=== PATIENT | female | born 1940 | race African-American/Black ===

== ENCOUNTER 2019-08-19 16:38 | Emergency (ER) | payer MEDICARE ==
--- NOTE | 2019-08-19 17:22 | ER Document Report ---
ED Skin Rash/Insect Bite/Abscs - General Chief Complaint: Skin Sore(s) Stated Complaint: SKIN PROBLEM Time Seen by Provider: 08/19/19 16:54 Primary Care Provider: Wound Care [Provider Group] - Follow up as needed RENEE MOORE MD [Primary Care Provider] - Follow up as needed Mode of Arrival: Ambulatory Information source: Patient, Relative - Daughter Notes: 78-year-old female presented to ED for a sore to the sacral area. Daughter states she was just recently diagnosed with dementia and was released from the doctor's care in [place] to her care. She states that the patient has a large swollen coccyx area. States she does not know how long the sores been there but the patient states that 2 months ago she went in the hospital and the sore started about 10. Daughter states that her mother would not let her look at the wound until last night when she change the dressing. She states she saw it and that it looks so bad that she brought her to the emergency room. There is some eschar area but there is no drainage or erythema. She does have some fresh proud skin. This is a stage III sacral decubitus. No sounds of drainage. I have cleaned the wound and put a wet-to-dry dressing and it with a ABD pad and paper tape. I have instructed the daughter and patient to follow-up with primary doctor tomorrow and follow-up with the wound clinic for treatment for this area. - HPI Patient complains to provider of: Other - Decubitus Onset: Other - According to patient about 2 months Onset/Duration: Gradual Quality of pain: No pain Severity: None Pain Level: Denies Skin Character: Other - Sacral decubitus Identify cause: No Exacerbated by: Sitting Relieved by: Denies Similar symptoms previously: Yes Recently seen / treated by doctor: No - Related Data Allergies/Adverse Reactions: No Known Allergies Allergy (Unverified 08/19/19 17:40) Past Medical History - General Information source: Patient - Social History Smoking Status: Former Smoker Cigarette use (# per day): No Chew tobacco use (# tins/day): No Smoking Education Provided: No Frequency of alcohol use: None Drug Abuse: None Lives with: Family Family History: Reviewed & Not Pertinent Patient has suicidal ideation: No Patient has homicidal ideation: No - Past Medical History Cardiac Medical History: Reports: None Pulmonary Medical History: Reports: None EENT Medical History: Reports: None Neurological Medical History: Reports: None Endocrine Medical History: Reports: None Renal/ Medical History: Reports: None Malignancy Medical History: Reports: None GI Medical History: Reports: None Musculoskeletal Medical History: Reports None Skin Medical History: Reports None Psychiatric Medical History: Reports: Hx Dementia, Hx Depression, Hx Schizophrenia Traumatic Medical History: Reports: None Infectious Medical History: Reports: None Past Surgical History: Reports: Hx Section, Hx Hysterectomy Review of Systems - Review of Systems Constitutional: No symptoms reported EENT: No symptoms reported Cardiovascular: No symptoms reported Respiratory: No symptoms reported Gastrointestinal: No symptoms reported Genitourinary: No symptoms reported Female Genitourinary: No symptoms reported Musculoskeletal: No symptoms reported Skin: Other - Stage III decubitus 4 cm x 3 cm with eschar no drainage noted Hematologic/Lymphatic: No symptoms reported Neurological/Psychological: No symptoms reported -: Yes All other systems reviewed and negative Physical Exam - Vital signs Vitals: Temp 98.6 F 08/19/19 16:39 Interpretation: Normal - General General appearance: Appears well, Alert - HEENT Head: Normocephalic, Atraumatic Eyes: Normal Pupils: PERRL - Respiratory Respiratory status: No respiratory distress Chest status: Nontender Breath sounds: Normal Chest palpation: Normal - Cardiovascular Rhythm: Regular Heart sounds: Normal auscultation Murmur: No - Abdominal Inspection: Normal Distension: No distension Bowel sounds: Normal Tenderness: Nontender Organomegaly: No organomegaly - Back Back: Normal, Nontender - Extremities General upper extremity: Normal inspection, Nontender, Normal color, Normal ROM, Normal temperature General lower extremity: Normal inspection, Nontender, Normal color, Normal ROM, Normal temperature, Normal weight bearing. No: Alyx's sign - Neurological Neuro grossly intact: Yes Cognition: Normal Orientation: AAOx4 [place] Coma Scale Eye Opening: Spontaneous [place] Coma Scale Verbal: Oriented [place] Coma Scale Motor: Obeys Commands [place] Coma Scale Total: 15 Speech: Normal Motor strength normal: LUE, RUE, LLE, RLE Sensory: Normal - Psychological Associated symptoms: Normal affect, Normal mood - Skin Skin Temperature: Warm Skin Moisture: Dry Skin Color: Normal Skin irregularity: Decubitus ulcer - Stage III 4 cm x 3 cm with eschar Location of irregularity: Other - Sacral area Irregularity with: negative: Tenderness Course - Vital Signs Vital signs: Temp Pulse Resp BP Pulse Ox 99.5 F 107 H 18 134/75 H 95 08/19/19 17:39 08/19/19 17:39 08/19/19 17:39 08/19/19 17:39 08/19/19 17:39 Discharge - Discharge Clinical Impression: Sacral decubitus ulcer, stage III Condition: Stable Disposition: HOME, SELF-CARE Additional Instructions: Decubitus Ulcer A decubitus ulcer develops where there's pressure on the skin. It's a common problem in patients who can't move easily. The healing time depends on the size and depth of the ulcer, and on whether further damage can be avoided. If there are signs of infection, an antibiotic is prescribed. The ulcer should be cleaned and bandaged at least daily. The doctor may recommend special treatments such as whirlpool. Further pressure (such as lying on the ulcer area) should be absolutely avoided. Frequent changes of position will avoid further ulcers. To help the ulcer heal, pay close attention to general health. Diabetics should keep the blood sugar as normal as possible. Edema can be reduced with medication. Low blood oxygen can be improved with medication to improve breathing or an oxygen tank at home. Review the treatment of all medical problems with the doctor. Infection can spread from the ulcer. If there's fever, chilling, worsening pain, or increasing swelling in the area, call the doctor or return immediately. Please clean get in the shower daily but then changed wet-to-dry dressings with the saline and gauze that was provided, cover with ABD pad or the dressings that you have at home. Change anytime the dressing is soiled. Given you the name and number for the wound clinic I also want you to follow-up with her primary doctor. FOLLOW-UP CARE: If you have been referred to a physician for follow-up care, call the physicians office for an appointment as you were instructed or within the next two days. If you experience worsening or a significant change in your symptoms, notify the physician immediately or return to the Emergency Department at any time for re-evaluation. Referrals: Wound Care [Provider Group] - Follow up as needed RENEE MOORE MD [Primary Care Provider] - Follow up as needed
[2019-08-19 17:41] VITALS: BP 134/75
== END 2019-08-19 17:41 | disposition home or self-care (01) ==
LOC: ER 16:38
DX: L89.153 Pressure ulcer of sacral region, stage 3 (principal); F03.90 Unspecified dementia, unspecified severity, without behavioral disturbance, psychotic disturbance, mood disturbance, and anxiety; Z87.891 Personal history of nicotine dependence
CPT/HCPCS: 99283

== ENCOUNTER → 2019-10-21 | Outpatient (CLI) | payer MEDICARE, MEDICAID ==
[2019-10-21 15:57] LABS: ALBUMIN 4.2 g/dL (3.5-5.0); ALKALINE PHOSPHATASE 75 U/L (38-126); ANION GAP 9 (5-19); ASPARTATE AMINO TRANSFERASE 26 U/L (14-36); BILIRUBIN,TOTAL 0.2 mg/dL (0.2-1.3); BLOOD UREA NITROGEN 17 mg/dL (7-20); CALCIUM 9.9 mg/dL (8.4-10.2); CARBON DIOXIDE 25 mmol/L (22-30); CHLORIDE 96 mmol/L (98-107); GLUCOSE 96 mg/dL (75-110); POTASSIUM 4.4 mmol/L (3.6-5.0); TOTAL PROTEIN 7.1 g/dL (6.3-8.2)
== END ==
LOC: OD 14:55
PROVIDERS: ATTEND Family Medicine
DX: N17.9 Acute kidney failure, unspecified (principal); E87.1 Hypo-osmolality and hyponatremia; K76.89 Other specified diseases of liver; E03.9 Hypothyroidism, unspecified
CPT/HCPCS: 36415; 80053; 84443

== ENCOUNTER → 2019-12-16 | Outpatient (CLI) | payer MEDICARE, MEDICAID ==
[2019-12-16 13:54] LABS: ANION GAP 10 (5-19); BLOOD UREA NITROGEN 19 mg/dL (7-20); CALCIUM 10.4 mg/dL (8.4-10.2); CARBON DIOXIDE 26 mmol/L (22-30); CHLORIDE 103 mmol/L (98-107); GLUCOSE 94 mg/dL (75-110); POTASSIUM 4.6 mmol/L (3.6-5.0)
== END ==
LOC: OD 12:01
PROVIDERS: ATTEND Family Medicine
DX: E87.1 Hypo-osmolality and hyponatremia (principal); E03.9 Hypothyroidism, unspecified
CPT/HCPCS: 36415; 80048; 84443